=== PATIENT | female | born 1980 | race Caucasian/White ===

== ENCOUNTER → 2016-10-22 | Outpatient (CLI) | payer OTHER ==
[2016-02-18 00:23] VITALS: BP 118/70
[~2016-10-22] MED LIST: IBUP200C PO
--- NOTE | 2016-10-23 12:32 | EKG ---
[facility] [address] [place] [address] Test Date: 2016-10-23 Test Time: 10:30:41 Pat Name: DHARMESH BAUTISTA Department: Room: Gender: F Credit Support Counselor: : 1980 Requested By: DEBORAH BARAHONA Order Number: [id number] Reading MD: Interpretive Statements
== END | disposition home or self-care (01) ==
LOC: EKG 08:56
PROVIDERS: ATTEND Internal Medicine Cardiovascular Disease
DX: R00.2 Palpitations (principal)
CPT/HCPCS: 93225; 93226

== ENCOUNTER 2017-10-24 19:45 | Emergency (ER) | payer OTHER | END 2017-10-24 20:46 | disposition home or self-care (01) | LOC: ER 19:45 | DX: H92.02 Otalgia, left ear (principal); J32.9 Chronic sinusitis, unspecified; J45.909 Unspecified asthma, uncomplicated | CPT/HCPCS: 99283 ==

== ENCOUNTER 2018-04-21 10:57 | Emergency (ER) | payer OTHER ==
[2018-04-21 11:17] LABS: URINE HCG POC HCG POSITIVE (Negative)
[2018-04-21 12:10] LABS: ADD MAN DIFF? NO
[2018-04-21 12:14] LABS: BASO % 1 % (0-3); EOS # 0.2 x10^3/uL (0.0-0.7); EOS % 4 % (0-3); HEMATOCRIT 38.7 % (36.0-47.0); HEMOGLOBIN 12.9 g/dL (12.0-15.5); LYMPH # 2.3 x10^3/uL (1.0-4.8); LYMPH % 37 % (24-48); MEAN CORPUSCULAR HEMOGLOBIN 30 pg (25-35); MEAN CORPUSCULAR HGB CONC 33 g/dL (31-37); MEAN CORPUSCULAR VOLUME 90 fL (79-100); MONO # 0.5 x10^3/uL (0.0-1.1); MONO % 8 % (0-9); NEUT # 3.2 x10^3uL (1.8-7.7); NEUT % 51 % (31-73); PLATELET COUNT 253 x10^3/uL (140-400); RED BLOOD COUNT 4.28 x10^6/uL (3.50-5.40); RED CELL DISTRIBUTION WIDTH 13.5 % (11.5-14.5); WHITE BLOOD COUNT 6.3 x10^3/uL (4.0-11.0)
[2018-04-21 12:16] LABS: BILIRUBIN,URINE SMALL (NEG); CLARITY,URINE CLEAR; COLOR,URINE AMBER; GLUCOSE,URINE NEGATIVE (NEG); NITRITE,URINE NEGATIVE (NEG); PROTEIN,URINE 100 mg/dL (NEG-TRACE)
[2018-04-21 12:26] LABS: BACTERIA,URINE 0 /HPF (0-FEW); RBC,URINE >40 /HPF (0-2); SQUAMOUS EPITHELIAL CELL,UR FEW /LPF
[2018-04-21 13:09] LABS: ANION GAP 6 (6-14); BLOOD UREA NITROGEN 9 mg/dL (7-20); BUN/CREATININE RATIO 15 (6-20); CALCIUM 9.3 mg/dL (8.5-10.1); CARBON DIOXIDE 25 mmol/L (21-32); CHLORIDE 102 mmol/L (98-107); CREATININE 0.6 mg/dL (0.6-1.0); GFR 112.5; GLUCOSE 103 mg/dL (70-99); POTASSIUM 3.8 mmol/L (3.5-5.1); SODIUM 133 mmol/L (136-145)
[2018-04-21 13:15] LABS: ALBUMIN 3.4 g/dL (3.4-5.0); ALBUMIN/GLOBULIN RATIO 0.9 (1.0-1.7); ALK PHOS 52 U/L (46-116); ALT (SGPT) 27 U/L (14-59); AST (SGOT) 15 U/L (15-37); TOTAL BILIRUBIN 0.4 mg/dL (0.2-1.0); TOTAL PROTEIN 7.2 g/dL (6.4-8.2)
[2018-04-23 14:24] LABS: CHLAMYDIA PROBE Negative (Negative); GC PROBE Negative (Negative)
== END 2018-04-21 14:10 | disposition home or self-care (01) ==
LOC: ER 10:57
DX: O20.0 Threatened abortion (principal); Z90.49 Acquired absence of other specified parts of digestive tract; O99.511 Diseases of the respiratory system complicating pregnancy, first trimester; J45.909 Unspecified asthma, uncomplicated; Z3A.01 Less than 8 weeks gestation of pregnancy
CPT/HCPCS: 36415; 76801; 76817; 80053; 81001; 81025; 84702; 85025; 86900; 86901; 87491; 87591; 99285-25; Q0111

== ENCOUNTER 2019-12-22 16:18 | Emergency (ER) | payer OTHER ==
[~2019-12-22] VITALS: Ht 160 cm; Wt 95.4 kg
[~2019-12-22 16:18] MED LIST changes: +AMOX1TAB61 PO
[2019-12-22 16:40] VITALS: BP 121/89
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
[2019-12-22] MEDS ORDERED: NAPR-514 PO (18:23)
[2019-12-22] MEDS ORDERED: CYCL10TA2 PO (18:23)
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
== END 2019-12-22 18:40 | disposition home or self-care (01) ==
LOC: ER 16:18
DX: G89.11 Acute pain due to trauma (principal); M54.5 Low back pain; J45.909 Unspecified asthma, uncomplicated; Z90.49 Acquired absence of other specified parts of digestive tract; Z98.51 Tubal ligation status; Z98.890 Other specified postprocedural states; V89.2XXA Person injured in unspecified motor-vehicle accident, traffic, initial encounter; Y93.89 Activity, other specified; Y92.413 State road as the place of occurrence of the external cause; Y99.8 Other external cause status
CPT/HCPCS: 72100; 99283

== ENCOUNTER → 2020-03-10 | Outpatient (CLI) | payer OTHER ==
[2019-12-22 16:51] VITALS: BP 121/89
[~2020-03-10] MED LIST changes: +CYCL10TA2 PO; +NAPR-514 PO
--- NOTE | 2020-03-10 10:34 | RAD ---
MRI Lumbar Spine without contrast History: Right side sciatica Technique: Multiplanar, multi sequential noncontrast MR imaging was performed of the lumbar spine. Comparison: None Findings: There is transitional anatomy of the lumbar spine. There is lumbarization of what is considered S1, formed although rudimentary intervertebral disc space at what is considered S1-2 with the most inferior fully formed intervertebral disc space considered L5-S1. There is mild degenerative disc disease at L4-5, minimal disc desiccation L5-S1. Conus terminates at L1-2. There is no significant marrow edema. There is negligible posterior subluxation of what is considered L5 relative to S1. L1-L2: Neural foramina and spinal canal are adequate. L2-L3: Neural foramina and spinal canal are adequate. L3-L4: Spinal canal and neural foramina are adequate. L4-L5: There is negligible disc osteophyte complex, also shallow protrusion in the proximal right extrarenal region near the undersurface of the proximal extraforaminal right L4 nerve root without significant displacement. Spinal canal is adequate. Neural foramina are overall adequate. L5-S1: There is negligible disc osteophyte complex. Spinal canal is adequate. There is mild right facet hypertrophic change. There is mild narrowing of the left neural foramen, mild to moderate narrowing on the right from disc osteophyte complex and facet with contact of the undersurface exiting right L5 nerve root in the proximal extraforaminal region by disc osteophyte complex. Impression: 1. There is transitional anatomy of the lumbar spine, most inferior fully formed intervertebral disc space considered L5-S1 with a rudimentary intervertebral disc space at what is considered S1-S2. There is negligible posterior subluxation of what is considered L5 relative to S1. 2. There is mild L4-5 degenerative disc disease. There is minimal spondylosis. 3. There is no lumbar spinal stenosis. 4. There is [id number]-[id number] narrowing of the right L5-S1 neural foramen more distally. There is also contact of the extraforaminal right L4 nerve root at L4-5 by shallow protrusion in the right L5 nerve root at L5-S1 by minimal disc osteophyte complex. Electronically signed by: Gary Mckeon MD (03/10/2020 10:31 AM) [id number]
== END | disposition home or self-care (01) ==
LOC: MRI 08:25
PROVIDERS: ATTEND Family Medicine
DX: M51.36 Other intervertebral disc degeneration, lumbar region (principal); M51.26 Other intervertebral disc displacement, lumbar region; M48.07 Spinal stenosis, lumbosacral region; M25.78 Osteophyte, vertebrae; M89.38 Hypertrophy of bone, other site; M54.31 Sciatica, right side; M54.13 Radiculopathy, cervicothoracic region; V89.2XXD Person injured in unspecified motor-vehicle accident, traffic, subsequent encounter
CPT/HCPCS: 72148

== ENCOUNTER → 2020-03-21 | Outpatient (CLI) | payer OTHER ==
[2019-12-22 16:51] VITALS: BP 121/89
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
== END | disposition home or self-care (01) ==
LOC: PNCL 10:46
PROVIDERS: ATTEND Anesthesiology
DX: M79.604 Pain in right leg (principal)
CPT/HCPCS: G0463

== ENCOUNTER → 2020-04-13 | Outpatient (CLI) | payer OTHER ==
[2019-12-22 16:51] VITALS: BP 121/89
[~2020-04-13] MED LIST changes: +IOHEXOL 180 MG/ML 10 ML VIAL. ONE; +methylPREDNISolone ACETATE 40 MG/ML VIAL. ONE; +methylPREDNISolone ACETATE 80 MG/ML VIAL. ONE
--- NOTE | 2020-04-14 02:31 | PAIN ---
DATE OF SERVICE: 04/13/2020 PROGRESS NOTE FOR PAIN CLINIC DIAGNOSIS: Lumbar radiculopathy with lumbar degenerative disk disease. HISTORY OF PRESENT ILLNESS: The patient is a 39-year-old female who returns for followup status post initial evaluation and preauthorization for lumbar epidural steroid injection. The patient has obtained that now and would like to proceed, still pain in the low back, right lower extremity, posterior gluteus, posterior thigh, posterior calf with tingling and heaviness in the right foot and leg. The patient reports it is 7 on a scale of 10 at its worse over the past week, 5 on average, 5 at its least and is a 5 today. The patient reports it is burning, aching, radiating, becoming more constant, on and off in intensity. The patient reports no new motor or sensory deficit. It does not awaken her from sleep at night, better with sitting or lying down, worse with walking, weightbearing. PHYSICAL EXAMINATION: VITAL SIGNS: The patient's blood pressure is 121/89, pulse 87, respirations 20, temperature is 98.2 degrees Fahrenheit, height is 5 feet 4 inches, weight is 232 pounds. GENERAL: The patient is awake, alert, oriented, appropriate, very pleasant demeanor. HEENT: Shows normocephalic, atraumatic. Extraocular movements are intact and symmetrical. Oral cavity: Mucous membranes moist and pink. Dentition is intact. NECK: Shows anterior throat supple without palpable lymphadenopathy noted. Swallow reflex symmetrical. CHEST: Shows normal on inspection. Breath sounds are clear to auscultation bilaterally. HEART: Shows S1, S2 clear. No murmurs auscultated. ABDOMEN: Soft, nontender, nondistended. No palpable organomegaly is noted. No rebound or guarding demonstrated. BACK: Shows spine grossly in the midline. Normal appearing thoracic kyphosis, some minor flattening of lumbar lordotic curvature. Lumbar paraspinous muscle shows symmetrical on inspection, on palpation shows some moderate tenderness diffusely bilaterally, but only diffusely without significant radiation. The patient has good rotational motion of lumbar spine, both laterally as well as extension and flexion without difficulty. EXTREMITIES: Lower extremities show deep tendon reflexes 1+ in the patellar and tendo calcaneus tendons. Motor exam is approximately 4 on a scale of 5 on the right with dorsiflexion and extension and 5/5 on the left. Peripheral pulses are 1+ posterior tibia. No peripheral edema bilaterally. Options were discussed with the patient. The patient's old chart was reviewed as her current medication regimen updated. Current review of systems updated today as well. We will proceed with a lumbar epidural steroid injection today with fluoroscopic guidance. Risks were discussed including but not limited to bleeding, infection, possibility of epidural hematoma, subsequent neurological compromise, dural puncture, headaches, spinal cord and/or nerve damage, side effects of steroid medication and poor results regarding pain control. The patient understands and wished to proceed. The patient will return to the clinic in approximately 2 weeks for followup. She was counseled on return appointment, activity level and side effects to be aware of. DIAGNOSIS: Lumbar radiculopathy with lumbar degenerative disk disease. PROCEDURE: Lumbar epidural steroid injection, translaminar approach L5-S1 level using C-arm fluoroscopic guidance under sterile prep and drape using local anesthetic. MEDICATION INJECTED: A total of 120 mg Depo-Medrol plus 10 mL of preservative-free normal saline and 2 mL of contrast. CONDITION AT DISCHARGE: Stable. The patient tolerated procedure well, had no complications. LUTHER MCNEIL MD DR: KULWINDER/diego JOB#: [id number] / [id number]
== END | disposition home or self-care (01) ==
LOC: PNCL 08:05
PROVIDERS: ATTEND Anesthesiology
DX: M51.16 Intervertebral disc disorders with radiculopathy, lumbar region (principal); Z79.899 Other long term (current) drug therapy
CPT/HCPCS: 62323; J1030; J1040; Q9965

== ENCOUNTER → 2020-05-05 | Outpatient (CLI) | payer OTHER ==
[2019-12-22 16:51] VITALS: BP 121/89
[~2020-05-05] MED LIST changes: -IOHEXOL 180 MG/ML 10 ML VIAL. ONE; -methylPREDNISolone ACETATE 40 MG/ML VIAL. ONE; -methylPREDNISolone ACETATE 80 MG/ML VIAL. ONE
--- NOTE | 2020-05-05 12:13 | PAIN ---
DATE OF SERVICE: 05/05/2020 PROGRESS NOTE FOR PAIN CLINIC DIAGNOSIS: Lumbar radiculopathy with lumbar degenerative disk disease. HISTORY OF PRESENT ILLNESS: The patient is a 39-year-old female who returns for followup status post lumbar epidural steroid injection x 1. The patient reports a 75-80% improvement after the first injection in the low back and right lower extremity. The patient reports that she has increased her activity with greater distance walking, doing household activities and work activities at home, sleeping much better, does not awaken her from sleep. The patient reports the pain is returning now; however, in the low back and right lower extremity, mostly in the posterior gluteus, posterior thigh and calf to some extent, but mostly in the thigh. The patient reports it is an 8 on a scale of 10 at its worse over the past week, 5 on average, 0 at its least and is a 5 today. The patient reports it is tingling, burning, radiating, some days better than others. She has been more active, increasing her traveling and household activities with much greater ease and comfort. The patient reports still with walking and standing for more than 10-15 minutes, the pain returns fairly quickly, again not awaken her from sleep, much better with sitting or lying down. The patient reports no new motor or sensory deficits, no new bowel or bladder incontinence or other complaints. PHYSICAL EXAMINATION: VITAL SIGNS: The patient's blood pressure 119/67, pulse 84, respirations 16, temperature is 98.3 degrees Fahrenheit, height is 5 feet 4 inches and weight is 230 pounds. GENERAL: The patient is awake, alert, oriented, appropriate, very pleasant demeanor. HEENT: Shows normocephalic, atraumatic. Extraocular movements are intact and symmetrical. Oral cavity: Mucous membranes moist and pink. Dentition is intact. NECK: Shows anterior throat supple without palpable lymphadenopathy noted. Neck shows full rotational motion of cervical spine, both laterally as well as extension and flexion without significant difficulty. CHEST: Shows normal on inspection. Breath sounds are clear bilaterally. No rales, rhonchi or wheezes auscultated. HEART: Shows S1, S2 clear. No murmurs auscultated. ABDOMEN: Obese but soft, nontender, nondistended. BACK: Shows spine grossly in the midline, slight exaggerated thoracic kyphosis and minor flattening of lumbar lordotic curvature. Lumbar paraspinous muscle shows symmetrical on inspection, on palpation shows some moderate tenderness diffusely bilaterally, but only diffusely without significant radiation. The patient has good rotational motion of lumbar spine without significant pain as well. EXTREMITIES: Lower extremities show deep tendon reflexes 1+ in the patellar and tendo-calcaneus tendons. Motor exam is approximately 4 on a scale 5 on the right dorsiflexion, extension, quadriceps and hamstring flexion and 5/5 left. Peripheral pulses are 1+ posterior tibia. No peripheral edema is noted bilaterally. Options were discussed with the patient. The patient's old chart was reviewed as her current medication regimen updated. Current review of systems updated today as well. We will preauthorize the patient for a second lumbar epidural steroid injection. She did very well after the first injection, still with clinical radiculopathy on the right in the L5-S1 dermatomal distribution. We will plan on a repeat lumbar epidural steroid injection at L5-S1 translaminar approach. The patient will continue doing stretching and strengthening exercises, also was given Medrol Dosepak to take in the meantime with instructions, side effects to be aware of discussed with the medication. The patient will follow up for lumbar epidural steroid injection as scheduled. LUTHER MCNEIL MD DR: KULWINDER/diego JOB#: [id number] / [id number]
== END | disposition home or self-care (01) ==
LOC: PNCL 09:16
PROVIDERS: ATTEND Anesthesiology
DX: M51.16 Intervertebral disc disorders with radiculopathy, lumbar region (principal); Z79.899 Other long term (current) drug therapy
CPT/HCPCS: 99212; G0463

== ENCOUNTER 2020-06-03 23:04 | Emergency (ER) | payer OTHER ==
[~2020-06-03] VITALS: Ht 162.6 cm; Wt 104.5 kg
[2020-06-03 23:19] VITALS: BP 113/69
--- NOTE | 2020-06-04 00:33 | PHYS DOC ---
Past Medical History Past Medical History: Asthma, Other Additional Past Medical Histor: insulin resistance, "1.5 HEART PAUSE" Past Surgical History: Cholecystectomy, , Tubal ligation, Other Additional Past Surgical Histo: c sec x5, RIGHT ANKLE, BILAT BREAST TISSUE REMOVED Smoking Status: Never Smoker Alcohol Use: None Drug Use: None General Adult EDM: Chief Complaint: LOWER EXTREMITY SWELLING HPI: HPI: Patient is a 39 year old female who presents with pain in the right lower extremity. Patient actually has a number of different concerns. She is concerned that she is developed a blood clot in the leg because she thinks that there is some swelling and pain. The pain is been present however for multiple weeks. It is present in the lateral thigh near the trochanter of the right hip which then travels down towards the knee. She complains of pain in her knee but really the pain is in her knee the pain is referred from the hip. Patient denied fever, chills, sweats, nausea, vomiting, cough, shortness of breath, chest pain, josh pain. Review of Systems: Review of Systems: Constitutional: Denies fever or chills. [] Eyes: Denies change in visual acuity. [] HENT: Denies nasal congestion or sore throat. [] Respiratory: Denies cough or shortness of breath. [] Cardiovascular: Denies chest pain or edema. [] GI: Denies abdominal pain, nausea, vomiting, bloody stools or diarrhea. [] : Denies dysuria. [] Musculoskeletal: See HPI [] Integument: Denies rash. [] Neurologic: Denies headache, focal weakness or sensory changes. [] Endocrine: Denies polyuria or polydipsia. [] Lymphatic: Denies swollen glands. [] Psychiatric: Denies depression or anxiety. [] Heart Score: Risk Factors: Risk Factors: DM, Current or recent (<one month) smoker, HTN, HLP, family history of CAD, obesity. Risk Scores: Score 0 - 3: 2.5% MACE over next 6 weeks - Discharge Home Score 4 - 6: 20.3% MACE over next 6 weeks - Admit for Clinical Observation Score 7 - 10: 72.7% MACE over next 6 weeks - Early Invasive Strategies Allergies: Allergies: Allergies Coded Allergies Type Severity Reaction Last Updated Verified No Known Drug Allergies 05/12/14 No Physical Exam: PE: Constitutional: Well developed, well nourished, no acute distress, non-toxic appearance. [] Cardiovascular:Heart rate regular rhythm, no murmur [] Lungs & Thorax: Bilateral breath sounds clear to auscultation [] Abdomen: Bowel sounds normal, soft, no tenderness, no masses, no pulsatile masses. [] Skin: Warm, dry, no erythema, no rash. [] Back: No tenderness, no CVA tenderness. [] Extremities: No tenderness, no cyanosis, no clubbing, ROM intact, no edema. Tenderness over the anserine bursa, tenderness over the trochanteric bursa, radiating towards the knee, reproducing her pain. [] Neurologic: Alert and oriented X 3, normal motor function, normal sensory function, no focal deficits noted. [] Psychologic: Affect normal, judgement normal, mood normal. [] Current Patient Data: Vital Signs: Vital Signs Date Time Temp Pulse Resp B/P (MAP) Pulse Ox O2 Delivery O2 Flow Rate FiO2 /15/20 23:19 96.8 81 20 113/69 (84) 93 Room Air 96.8 EKG: EKG: [] Radiology/Procedures: Radiology/Procedures: Indication: Trochanteric bursitis Consent: Consent given by patient. Procedure: The patient was placed in the left lateral decubitus position. Using chlorhexidine the area of interest was cleaned. Using aseptic technique 6 mL of 1% lidocaine and 80 mg of Depo-Medrol was instilled into the trochanteric bursa through an direct injection. The patient tolerated the procedure well without any complications. Patient did have some relief but not complete relief at the time of the procedure. Complications: none. [][] Course & Med Decision Making: Course & Med Decision Making Pertinent Labs and Imaging studies reviewed. (See chart for details) 0216-patient was seen and reevaluated. Patient has had some improvement after the injection. I had offered her a's work-up for DVT. But she denied this. The patient does not really have many symptoms of DVT no has no risk factors. I encouraged her to return should she have any troubles. I discussed reasons to return, treatment plan and need for follow-up. [] Dragon Disclaimer: Alfred Disclaimer: This electronic medical record was generated, in whole or in part, using a voice recognition dictation system. Departure Departure Impression: Primary Impression: Trochanteric bursitis of right hip Disposition: HOME, SELF-CARE Condition: IMPROVED Referrals: Balta KEE MD (PCP) Patient Instructions: Hip Bursitis Additional Instructions: Use ice for the next 1 to 2 days 30 minutes on 30 minutes off, you may take Aleve 2 pills twice a day with food. Justicifation of Admission Dx: Justifications for Admission: Justification of Admission Dx: N/A VALERIE GUTIERRES MD Jun 04, 2020 00:33
[2020-06-04] MEDS ORDERED: LIDOCAINE 1% PF 2 ML VIAL. INJ ONE (01:00)
[2020-06-04] MEDS ORDERED: methylPREDNISolone ACETATE 80 MG/ML VIAL. INT ART ONE (01:00)
== END 2020-06-04 02:29 | disposition home or self-care (01) ==
LOC: ER 23:04
DX: M70.61 Trochanteric bursitis, right hip (principal); R60.0 Localized edema; J45.909 Unspecified asthma, uncomplicated; Z90.49 Acquired absence of other specified parts of digestive tract; Z98.51 Tubal ligation status; Z98.890 Other specified postprocedural states; Y93.89 Activity, other specified
CPT/HCPCS: 99283; 20610-50

== ENCOUNTER → 2020-07-10 | Outpatient (CLI) | payer OTHER ==
--- NOTE | 2020-07-10 11:14 | PDOC ---
Progress Note - Pain Clinic Date of Service: DOS: DATE: 07/10/20 TIME: 11:09 Diagnosis: Dx: Lumbar radiculopathy with lumbar degenerative disc disease History or Present Illness: HPI: 39-year-old female returns follow-up status post lumbar epidurals injection x1. Last injection was April 13, 2020. Patient reports about 80% improvement in the low back and right lower extremity pain for almost 3 months now, with pain returning over the past week or so in the low back and the right lower extremity posterior gluteus lateral thigh posterior thigh posterior calf and foot on the right side worse with walking standing changing positions. Better with sitting or laying down. Patient reports is better at night does not awaken her from sleep any longer and she has been getting around initially doing much better with walking standing changing positions travel with greater ease and comfort until just the last 2 to 3 weeks the pain is began to return now. But again patient did very well with good almost 3 months. Of near 80% improvement in the radicular pain. Patient rates as an 8 on scale 10 is worse over the past week 6 on average for this least and is a 6 today patient scribes aching tight shooting burning tingling in the right leg on and off in intensity shooting in a radicular quality. Reports no new motor or sensory deficits no new bowel or bladder incontinence or complaints. Physical Exam: VS: Pressure is 119/82 pulse 77 respirations 18 temperature 98.4 F height is 5 foot 4 inches weight is 234 pounds PE: PHYSICAL EXAMINATION: GENERAL: The patient is awake, alert, oriented, appropriate, very pleasant demeanor HEENT: Shows normocephalic, atraumatic. Extraocular movements are intact and symmetrical. Oral cavity: Mucous membranes moist and pink. NECK: Shows anterior throat supple without palpable lymphadenopathy noted. Swallow reflex symmetrical. CHEST: Shows normal on inspection. Breath sounds are clear bilaterally, no rales rhonchi wheezes auscultated. HEART: Shows S1, S2 clear. No murmurs auscultated. ABDOMEN: Soft, nontender, nondistended, obese. No palpable organomegaly is noted. No rebound or guarding demonstrated. BACK: Shows spine grossly in the midline. Normal-appearing cervical lordotic curvature. There is slightly increased thoracic kyphosis, some minor flattening of the lumbar lordotic curvature. Lumbar paraspinous muscles show symmetrical on inspection, on palpation shows some moderate tenderness diffusely throughout the upper, middle and lower distribution of the paraspinous muscles bilaterally, but without specific trigger points, without radiation of pain. The patient has good rotational motion of the lumbar spine, both laterally as well as extension and flexion without significant difficulty. No tenderness over the spinous processes, sacrum or sacroiliac regions. EXTREMITIES: Lower extremities show deep tendon reflexes 1+ in the patellar and tendo calcaneus tendons. Motor exam is 4 on a scale of 5 with right dorsiflexion, extension, quadriceps and hamstring flexion and 5/5 on the left. Peripheral pulses are 1+ posterior tibial. No peripheral edema is noted bilaterally. Lower extremities are warm and dry to touch, equal in color and appearance. SKIN: Shows warm and dry, good turgor. No edema. No sores, rashes or bruising throughout. Procedure: Procedure: Options were discussed with the patient. Patient's old chart was reviewed as her current medication regimen updated current review of systems updated today as well. We will preauthorize patient for a second lumbar epidural steroid injection. Patient did very well for almost 3 months after the first injection with 80% improvement now pain returning in a radicular fashion following an L4-5 S1 dermatomal distribution on the right side. We will plan on translaminar approach at the L5-S1 level for lumbar epidural to injection on patient's return once authorization is obtained. The meantime patient will continue with stretching strength exercises and walking daily as tolerated. Medication Injected: Med Injected: None Condition at Discharge: Condition at Discharge: Condition at discharge is stable LUTHER MCNEIL MD Jul 10, 2020 11:14
== END | disposition home or self-care (01) ==
LOC: PNCL 10:42
PROVIDERS: ATTEND Anesthesiology
DX: M51.16 Intervertebral disc disorders with radiculopathy, lumbar region (principal); Z98.51 Tubal ligation status; Z79.899 Other long term (current) drug therapy
CPT/HCPCS: 99212; G0463

== ENCOUNTER → 2020-08-09 | Outpatient (CLI) | payer OTHER ==
[~2020-08-09] MED LIST changes: +IOHEXOL 180 MG/ML 10 ML VIAL. ONE; +methylPREDNISolone ACETATE 40 MG/ML VIAL. ONE; +methylPREDNISolone ACETATE 80 MG/ML VIAL. ONE
--- NOTE | 2020-08-09 11:45 | PDOC ---
Progress Note - Pain Clinic Date of Service: DOS: DATE: 08/09/20 TIME: 11:42 Diagnosis: Dx: Lumbar radiculopathy with lumbar degenerative disc disease History or Present Illness: HPI: 39-year-old female returns follow-up status post lumbar epidural steroid injection x1 April 13, 2020. Patient did very well with about 80% improvement in the pain for just over 3 months, with pain returning now in late June. Patient reports pain is increased in the low back and the right lower extremity rating the posterior gluteus posterior thigh posterior calf into the foot with some burning and aching sensation as well as some tingling in the foot as well with walking and standing. Rates her pain as an 8 on scale 10 is worse over the past week for an average for its least is a 4 today. Patient which is aching tight burning on and off in intensity worse with walking standing sitting for prolonged periods better with laying down does not awaken her from sleep at night. Patient reports no new motor or sensory deficits no new bowel or bladder incontinence or other complaints. Physical Exam: VS: Blood pressure is 118/83 pulse 72 respirations 18 temperature 90.0 F height is 5 foot 4 inches weight is 235 pounds PE: PHYSICAL EXAMINATION: GENERAL: The patient is awake, alert, oriented, appropriate, very pleasant demeanor HEENT: Shows normocephalic, atraumatic. Extraocular movements are intact and symmetrical. NECK: Shows anterior throat supple without palpable lymphadenopathy noted. Swallow reflex symmetrical. CHEST: Shows normal on inspection. Breath sounds are clear bilaterally, no rales rhonchi wheezes auscultated. HEART: Shows S1, S2 clear. No murmurs auscultated. ABDOMEN: Soft, nontender, nondistended, obese. No palpable organomegaly is noted. No rebound or guarding demonstrated. BACK: Shows spine grossly in the midline. Normal-appearing cervical lordotic curvature. There is slightly increased thoracic kyphosis, some minor flattening of the lumbar lordotic curvature. Lumbar paraspinous muscles show symmetrical on inspection, on palpation shows some moderate tenderness diffusely throughout the upper, middle and lower distribution of the paraspinous muscles bilaterally without specific trigger points, without radiation of pain. The patient has good rotational motion of the lumbar spine, both laterally as well as extension and flexion without significant difficulty. No tenderness over the spinous processes, sacrum or sacroiliac regions. EXTREMITIES: Lower extremities show deep tendon reflexes 1+ in the patellar and tendo calcaneus tendons. Motor exam is 4 on a scale of 5 with right dorsiflexion, extension, quadriceps and hamstring flexion and 5/5 on the left. Peripheral pulses are 1+ posterior tibial. No peripheral edema is noted bilaterally. Lower extremities are warm and dry to touch, equal in color and appearance. SKIN: Shows warm and dry, good turgor. No edema. No sores, rashes or bruising throughout. Procedure: Procedure: Options were discussed with the patient. Patient's old chart was reviewed as her current medication regimen updated current review of systems updated today as well. We will preauthorize patient for second lumbar epidural steroid injection with extension of patient's approval dates by her request. Patient still with clinical radiculopathy in L5-S1 abdominal distribution on the right as previously. Patient continue with stretching strength exercises walking daily as tolerated. Medication Injected: Med Injected: None Condition at Discharge: Condition at Discharge: Condition at discharge is stable. LUTHER MCNEIL MD Aug 09, 2020 11:45
== END ==
LOC: PNCL 10:21
PROVIDERS: ATTEND Anesthesiology
DX: M51.16 Intervertebral disc disorders with radiculopathy, lumbar region (principal); Z79.899 Other long term (current) drug therapy
CPT/HCPCS: 99212; J1030; J1040; Q9965; G0463

== ENCOUNTER → 2020-08-16 | Outpatient (CLI) | payer OTHER ==
--- NOTE | 2020-08-16 09:38 | PDOC ---
Progress Note - Pain Clinic Date of Service: DOS: DATE: 08/16/20 TIME: 09:35 Diagnosis: Dx: Lumbar radiculopathy with lumbar degenerative disc disease History or Present Illness: HPI: 39-year-old female returns follow-up status post lumbar epidural straight injection x1 April 08, 2020. Patient reports she did very well about 80% improvement after the injection she was waiting for preauthorization for this next injection and has that now and still with pain reported in the low back and right lower extremity posterior gluteus posterior thigh posterior calf worse with walking standing changing positions. Patient reports is better with sitting or laying down but does awaken her from sleep occasionally. Patient reports no new motor or sensory deficits no new bowel or bladder incontinence or other complaints rates her pain is 8 on scale 10 is worse over the past week 6 on average 3 at its least is a 3 today. Patient scribes a pain is aching a burning type in the low back shooting and radiating to the right lower extremity. No new motor or sensory deficits no bowel or bladder incontinence Physical Exam: VS: Blood pressure is 120/80 pulse 76 respirations 16 temperature is 98.2 F height is 5 feet 4 inches weight is 233 pounds PE: PHYSICAL EXAMINATION: GENERAL: The patient is awake, alert, oriented, appropriate, very pleasant demeanor HEENT: Shows normocephalic, atraumatic. Extraocular movements are intact and symmetrical. Oral cavity: Mucous membranes moist and pink. NECK: Shows anterior throat supple without palpable lymphadenopathy noted. Swallow reflex symmetrical. CHEST: Shows normal on inspection. Breath sounds are clear bilaterally, no rales rhonchi or wheezes. HEART: Shows S1, S2 clear. No murmurs auscultated. ABDOMEN: Soft, nontender, nondistended, obese. No palpable organomegaly is noted. No rebound or guarding demonstrated. BACK: Shows spine grossly in the midline. Normal-appearing cervical lordotic curvature. There is slightly increased thoracic kyphosis, some minor flattening of the lumbar lordotic curvature. Lumbar paraspinous muscles show symmetrical on inspection, on palpation shows some moderate tenderness diffusely throughout the upper, middle and lower distribution of the paraspinous muscles bilaterally, but without specific trigger points, without radiation of pain. The patient has good rotational motion of the lumbar spine, both laterally as well as extension and flexion without significant difficulty. No tenderness over the spinous processes, sacrum or sacroiliac regions. EXTREMITIES: Lower extremities show deep tendon reflexes 1+ in the patellar and tendo calcaneus tendons. Motor exam is 4 on a scale of 5 with right dorsiflexion, extension, quadriceps and hamstring flexion and 5/5 on the left. Peripheral pulses are 1+ posterior tibial. No peripheral edema is noted bilaterally. Lower extremities are warm and dry to touch, equal in appearance. SKIN: Shows warm and dry, good turgor. No edema. No sores, rashes or bruising throughout. Procedure: Procedure: Patient discussed with the patient. Patient chart was reviewed as her current m edication regimen updated current review of systems updated today as well. Proceed with a lumbar epidural steroid injection as a second in the series with fluoroscopic guidance. Risks were discussed including but not limited to: Bleeding, infection, possibility of epidural hematoma and subsequent neurological compromise, dural puncture, headaches, spinal cord and/or nerve damage, side effects of steroid medication, and poor results regarding pain control. Patient understands wished to proceed. Patient will return to clinic in approximately 2 weeks for follow-up with counselors return appointment activity level and side effects to be aware of. Medication Injected: Med Injected: Procedure is lumbar epidural steroid injection under local anesthetic using sterile prep and drape at the L5-S1 level using C-arm fluoroscopic guidance in both AP and lateral views medications injected is 120 mg Depo-Medrol + 10 mL preservative-free normal saline and 2 mL contrast- condition at discharge is stable patient tolerated procedure well had no complications. Condition at Discharge: Condition at Discharge: Condition at discharge is stable patient tolerated procedure well had no complications. LUTHER MCNEIL MD Aug 16, 2020 09:38
== END ==
LOC: PNCL 08:53
PROVIDERS: ATTEND Anesthesiology
DX: M51.16 Intervertebral disc disorders with radiculopathy, lumbar region (principal); Z98.51 Tubal ligation status; Z79.899 Other long term (current) drug therapy
CPT/HCPCS: 62323; J1030; J1040; Q9965

== ENCOUNTER → 2020-09-01 | Outpatient (CLI) | payer OTHER ==
[~2020-09-01] MED LIST changes: -IOHEXOL 180 MG/ML 10 ML VIAL. ONE; -methylPREDNISolone ACETATE 40 MG/ML VIAL. ONE; -methylPREDNISolone ACETATE 80 MG/ML VIAL. ONE
--- NOTE | 2020-09-01 10:20 | PDOC ---
Progress Note - Pain Clinic Date of Service: DOS: DATE: 09/01/20 TIME: 10:16 Diagnosis: Dx: Lumbar radiculopathy with lumbar degenerative disc disease History or Present Illness: HPI: 39-year-old female returns follow-up status post lumbar epidural steroid injections x2. First in March of this year and second August 15. Patient reports about 80% improvement after each of the injections now tapered back to about 50% improvement overall but still significantly improved in the low back and left lower extremity patient reports it was about 80% better for the first 2weeks now returning but not quite to baseline patient reports in the low back mostly in the right lower extremity posterior gluteus posterior thigh posterior calf radiating in a pattern on the on the right side but without any significant weakness. Patient ports pain is a 5 on a scale 10 is worse over the past week 3 on average 0 at its least and is a 3 today. Patient reports no new motor or sensory deficits no new bowel or bladder incontinence or other complaints was increasing her activity with distance walking doing work activities household activities traveling greater ease and comfort still sleeping better at night does not awaken her from sleep worse with walking standing better with sitting or laying down. Describes pain as aching and tingling in the low back and especially the tingling in the right leg in a radicular pattern. Physical Exam: VS: Blood pressure 130/50 pulse 64 respirations 18 temperature 90.4 F height is 5 f oot 4 inches weight is 231 pounds PE: PHYSICAL EXAMINATION: GENERAL: The patient is awake, alert, oriented, appropriate, very pleasant demeanor HEENT: Shows normocephalic, atraumatic. Extraocular movements are intact and symmetrical. NECK: Shows anterior throat supple without palpable lymphadenopathy noted. Swallow reflex symmetrical. CHEST: Shows normal on inspection. Breath sounds are clear bilaterally. HEART: Shows S1, S2 clear. No murmurs auscultated. ABDOMEN: Soft, nontender, nondistended, obese. No palpable organomegaly is noted. No rebound or guarding demonstrated. BACK: Shows spine grossly in the midline. Normal-appearing cervical lordotic curvature. There is slightly increased thoracic kyphosis, some minor flattening of the lumbar lordotic curvature. Lumbar paraspinous muscles show symmetrical on inspection, on palpation shows some moderate tenderness diffusely throughout the upper, middle and lower distribution of the paraspinous muscles without specific trigger points, without radiation of pain. The patient has good rotational motion of the lumbar spine, both laterally as well as extension and flexion without significant difficulty. No tenderness over the spinous processes, sacrum or sacroiliac regions. EXTREMITIES: Lower extremities show deep tendon reflexes 1+ in the patellar and tendo calcaneus tendons. Motor exam is 4 on a scale of 5 with right dorsiflexion, extension, quadriceps and hamstring flexion and 5/5 on the left. Peripheral pulses are 1+ posterior tibial. No peripheral edema is noted bilaterally. Lower extremities are warm and dry to touch, equal in color and appearance. Straight leg raise noted to be positive on the right about 45 degrees, left side is negative. SKIN: Shows warm and dry, good turgor. No edema. No sores, rashes or bruising throughout. Procedure: Procedure: Options were discussed with the patient. Patient's old chart was reviewed as her current medication regimen updated current review of systems updated today as well. We will preauthorize patient for a third in the series lumbar epidural steroid injection as she did very well after the last 2, with pain returning and L5-S1 radicular pattern on the right leg. Patient continue with physical therap y exercises stretching and strengthening on her own as well as walking daily and patient continues to work as well on her feet. Once approved we will have patient return for lumbar epidural steroid injection #3 the L5-S1 level with translaminar approach. In the meantime we will prescribe Medrol Dosepak patient was given instructions well side effects beware with the medication. Medication Injected: Med Injected: None Condition at Discharge: Condition at Discharge: Condition at discharge is stable. LUTHER MCNEIL MD Sep 01, 2020 10:20
== END | disposition home or self-care (01) ==
LOC: PNCL 09:20
PROVIDERS: ATTEND Anesthesiology
DX: M51.16 Intervertebral disc disorders with radiculopathy, lumbar region (principal); Z79.899 Other long term (current) drug therapy
CPT/HCPCS: 99212; G0463

== ENCOUNTER → 2020-10-26 | Outpatient (CLI) | payer OTHER ==
--- NOTE | 2020-10-26 10:37 | PDOC ---
Progress Note - Pain Clinic Date of Service: DOS: DATE: 10/26/20 TIME: 10:34 Diagnosis: Dx: Lumbar radiculopathy with lumbar degenerative disc disease History or Present Illness: HPI: 40-year-old female returns follow-up status post lumbar epidural steroid injections x2 most recently August 15, 2020 patient did very well about 80% improvement for the first few weeks now reports overall about 50% improvement in the pain the low back and right lower extremity still rating the posterior gluteus posterior thigh posterior calf with tingling which comes and goes also described as aching and sharp in the back and tight in the leg as well. Patient reports is an 8 on scale 10 is worse over the past week 6 on average to its least is a 6 today. Patient reports no new motor or sensory deficits initially she was doing much better with distance walking doing household activities work activities as well as travel with greater ease and comfort patient reports the pain is returning now and is beginning awaken her from sleep least every 5 or 6 hours. Patient reports no new motor or sensory deficits no new bowel or bladder incontinence or other complaints. Patient is working the rest of the day will be on her feet and would like to wait on the injection until she can schedule where she is not working the rest of the day. Physical Exam: VS: Blood pressure is 120/88 pulse 87 respirations 16 temperature is 98.2 F weight is 232 pounds. PE: PHYSICAL EXAMINATION: GENERAL: The patient is awake, alert, oriented, appropriate, very pleasant demeanor HEENT: Shows normocephalic, atraumatic. Extraocular movements are intact and symmetrical. Oral cavity: Mucous membranes moist and pink. NECK: Shows anterior throat supple without palpable lymphadenopathy noted. Swallow reflex symmetrical. CHEST: Shows normal on inspection. Breath sounds are clear bilaterally. HEART: Shows S1, S2 clear. No murmurs auscultated. ABDOMEN: Soft, nontender, nondistended, obese. No palpable organomegaly is noted. BACK: Shows spine grossly in the midline. Normal-appearing cervical lordotic curvature. There is slightly increased thoracic kyphosis, some flattening of the lumbar lordotic curvature. Lumbar paraspinous muscles show symmetrical on inspection, on palpation shows some moderate tenderness diffusely throughout the upper, middle and lower distribution of the paraspinous muscles, but without specific trigger points, without radiation of pain. The patient has good rotational motion of the lumbar spine, both laterally as well as extension and flexion without significant difficulty. EXTREMITIES: Lower extremities show deep tendon reflexes 1+ in the patellar and tendo calcaneus tendons. Motor exam is 4 on a scale of 5 with right dorsiflexion, extension, quadriceps and hamstring flexion and 5/5 on the left. Peripheral pulses are 1+ posterior tibial. No peripheral edema is noted bilaterally. Lower extremities are warm and dry to touch, equal in color and appearance. SKIN: Shows warm and dry, good turgor. No edema. No sores, rashes or bruising throughout. Procedure: Procedure: Options were discussed with the patient. Patient chart was reviewed as her current medication regimen updated current review of systems updated today as nguyễn caldwell. We will have patient return in approximate 1 week where she will not be required to be on her feet the rest of the day following her injection per her request. Medication Injected: Med Injected: None Condition at Discharge: Condition at Discharge: Condition at discharge is stable. LUTHER MCNEIL MD Oct 26, 2020 10:37
== END | disposition home or self-care (01) ==
LOC: PNCL 09:53
PROVIDERS: ATTEND Anesthesiology
DX: M51.16 Intervertebral disc disorders with radiculopathy, lumbar region (principal); Z79.899 Other long term (current) drug therapy
CPT/HCPCS: 99212; G0463

== ENCOUNTER → 2020-11-02 | Outpatient (CLI) | payer OTHER ==
[~2020-11-02] MED LIST changes: +IOHEXOL 180 MG/ML 10 ML VIAL. ONE; +methylPREDNISolone ACETATE 40 MG/ML VIAL. ONE; +methylPREDNISolone ACETATE 80 MG/ML VIAL. ONE
--- NOTE | 2020-11-02 09:41 | PDOC ---
Progress Note - Pain Clinic Date of Service: DOS: DATE: 11/02/20 TIME: 09:38 Diagnosis: Dx: Lumbar radiculopathy with lumbar degenerative disc disease History or Present Illness: HPI: 40-year-old female returns to follow-up status post lumbar epidural steroid injection x2. Patient last had injection on August 15, 2020. Patient had to wait for preauthorization with her insurance provider and now has that for 3rd injection did very well after the last injection with approximate 80% improvement for several weeks following the injection but pain returning low back right lower extremity posterior gluteus posterior thigh posterior calf into the foot and especially the great toe on the right side. Patient reports its radiating on and off in intensity but tingling and aching in the low back patient ports that sharp and tight alternating in the back as well as shooting and radiating some cramping in the right leg as well. Patient reports it wakes her from sleep about once every 6 hours better generally with sitting or laying down but does awaken her from sleep. Patient ports worse with walking standing changing positions. Initially she was doing much better with walking distances and work activities household activities greater ease and comfortable travel with greater ease but now the pain has returned. Patient reports no new motor or sensory deficits no new bowel or bladder incontinence or other complaints. Physical Exam: VS: Blood pressure is 120/77 pulse 78 respirations 18 temperature 98.1 F height is 5 feet 4 inches weight is 231 pounds PE: PHYSICAL EXAMINATION: GENERAL: The patient is awake, alert, oriented, appropriate, very pleasant demeanor HEENT: Shows normocephalic, atraumatic. Extraocular movements are intact and symmetrical. NECK: Shows anterior throat supple without palpable lymphadenopathy noted. Swallow reflex symmetrical. CHEST: Shows normal on inspection. Breath sounds are clear bilaterally. HEART: Shows S1, S2 clear. No murmurs auscultated. ABDOMEN: Soft, nontender, nondistended, obese. No palpable organomegaly is noted. BACK: Shows spine grossly in the midline. Normal-appearing cervical lordotic curvature. There is increased thoracic kyphosis, some flattening of the lumbar lordotic curvature. Lumbar paraspinous muscles show symmetrical on inspection, on palpation shows some moderate tenderness diffusely throughout the upper, middle and lower distribution of the paraspinous muscles bilaterally without specific trigger points, without radiation of pain. The patient has good rotational motion of the lumbar spine, both laterally as well as extension and flexion without significant difficulty. EXTREMITIES: Lower extremities show deep tendon reflexes 1+ in the patellar and tendo calcaneus tendons. Motor exam is 4 on a scale of 5 with right dorsiflexion, extension, quadriceps and hamstring flexion and 5/5 on the left. Peripheral pulses are 1+ posterior tibial. No peripheral edema is noted bilaterally. Lower extremities are warm and dry to touch, equal in color and appearance. SKIN: Shows warm and dry, good turgor. No edema. No sores, rashes or bruising throughout. Procedure: Procedure: Options were discussed with the patient. Patient will chart reviews her current medication regimen updated current review of systems updated today as well. We will proceed with a third in the series lumbar epidural to injection today with fluoroscopic guidance. Risks were discussed including but not limited to: Bleeding, infection, possibility of epidural hematoma and subsequent neurological compromise, dural puncture, headaches, spinal cord and/or nerve dam age, side effects of steroid medication, and poor results regarding pain control. Patient understands wished to proceed. Patient will return to clinic in approximate 2 weeks for follow-up, was counseled as to return appointment activity level and side effects to be aware of. Medication Injected: Med Injected: Procedure is lumbar epidural steroid injection under local anesthetic using sterile prep and drape at the L5-S1 level using C-arm fluoroscopic guidance in both AP and lateral views medications injected is 120 mg Depo-Medrol + 10 mL preservative-free normal saline and 2 mL contrast- condition at discharge is stable patient tolerated procedure well had no complications. Condition at Discharge: Condition at Discharge: Condition at discharge stable, patient tolerated procedure well and had no complications. LUTHER MCNEIL MD Nov 02, 2020 09:41
== END | disposition home or self-care (01) ==
LOC: PNCL 09:10
PROVIDERS: ATTEND Anesthesiology
DX: M51.16 Intervertebral disc disorders with radiculopathy, lumbar region (principal); Z79.899 Other long term (current) drug therapy
CPT/HCPCS: 62323; J1030; J1040; Q9965

== ENCOUNTER → 2020-11-23 | Outpatient (CLI) | payer OTHER ==
[~2020-11-23] MED LIST changes: -IOHEXOL 180 MG/ML 10 ML VIAL. ONE; -methylPREDNISolone ACETATE 40 MG/ML VIAL. ONE; -methylPREDNISolone ACETATE 80 MG/ML VIAL. ONE
--- NOTE | 2020-11-23 09:16 | PDOC ---
Progress Note - Pain Clinic Date of Service: DOS: DATE: 11/23/20 TIME: 09:13 Diagnosis: Dx: Lumbar radiculopathy with lumbar degenerative disc disease History or Present Illness: HPI: 40-year-old female returns follow-up status post lumbar epidural steroid injection on November 02, 2020. Patient reports 100% improvement for the first week and then about 80% improvement after that. Patient reports has been several weeks since then the pain is beginning to return in the low back and right lower extremity as it was previously in the posterior gluteus posterior thigh posterior calf but only intermittent patient reports mostly in the back now in the right hip patient reports is an 8 on scale 10 is worse over the past week 5 on average to its least as a 4 today patient ported sharp and tight alternating in the low back radiating shooting in the right lower extremity posteriorly. Patient reports worse with walking standing changing positions better with sitting or laying down generally is doing better at night is sleeping better patient reports he is doing better at work activities household activities walking greater distances and ease and travel with greater ease as well. Patient reports no new motor or sensory deficits is very pleased with her progress on the pain is returning and radicular fashion and L5-S1 dermatomal distribution on the right leg. Physical Exam: VS: Blood pressure is 122/92 pulse 81 respirations 16 temperature 98.0 F height 5 foot 4 inches weight is 229 pounds PE: PHYSICAL EXAMINATION: GENERAL: The patient is awake, alert, oriented, appropriate, very pleasant demeanor HEENT: Shows normocephalic, atraumatic. Extraocular movements are intact and symmetrical. NECK: Shows anterior throat supple without palpable lymphadenopathy noted. Swallow reflex symmetrical. CHEST: Shows normal on inspection. Breath sounds are clear bilaterally. HEART: Shows S1, S2 clear. No murmurs auscultated. ABDOMEN: Soft, nontender, nondistended, obese. No palpable organomegaly is noted. BACK: Shows spine grossly in the midline. Normal-appearing cervical lordotic curvature. There is slightly increased thoracic kyphosis, some flattening of the lumbar lordotic curvature. Lumbar paraspinous muscles show symmetrical on inspection, on palpation shows some moderate tenderness diffusely throughout the upper, middle and lower distribution of the paraspinous muscles, but without specific trigger points, without radiation of pain. The patient has good rotational motion of the lumbar spine, both laterally as well as extension and flexion without significant difficulty. Moderate tenderness over the right greater than left posterior superior iliac spine but only diffusely without radiation. Left side is nontender. EXTREMITIES: Lower extremities show deep tendon reflexes 1+ in the patellar and tendo calcaneus tendons. Motor exam is 4 on a scale of 5 with right d orsiflexion, extension, quadriceps and hamstring flexion and 5/5 on the left. Peripheral pulses are 1+ posterior tibial. No peripheral edema is noted bilaterally. Lower extremities are warm and dry to touch, equal in color and appearance. SKIN: Shows warm and dry, good turgor. No edema. No sores, rashes or bruising throughout. Procedure: Procedure: Options discussed with the patient. Patient will chart reviews her current medication regimen updated current review of systems updated today as well. We will preauthorize patient for lumbar epidural steroid injection as she did very well with the last injection pain returning now in the right-sided L5-S1 dermatomal distribution. Patient would continue with stretching and strength exercises walking daily as tolerated. Patient also take anti-inflammatories as needed. Upon approval we will have patient return for a translaminar approach L5-S1 level lumbar epidural steroid injection. Medication Injected: Med Injected: None Condition at Discharge: Condition at Discharge: Condition at discharge stable. LUTHER MCNEIL MD Nov 23, 2020 09:16
== END | disposition home or self-care (01) ==
LOC: PNCL 08:36
PROVIDERS: ATTEND Anesthesiology
DX: M51.16 Intervertebral disc disorders with radiculopathy, lumbar region (principal); Z79.899 Other long term (current) drug therapy
CPT/HCPCS: 99212; G0463